=== PATIENT | male | born 2000 | race Caucasian/White ===

== ENCOUNTER 2018-08-14 08:19 | Emergency (ER) | payer SELFPAY ==
[~2018-08-14] VITALS: Ht 185.4 cm; Wt 127.0 kg
--- OUTSIDE RECORDS SUMMARY | 2018-08-14 08:24 | XMS REPORT | Continuity of Care Document ---
Author Organization Unknown Address Unknown Allergies There is no data. Medications There is no data. Problems Date Dx Coded Attending Type Code Diagnosis Diagnosed By 08/04/2013 V70.3 SPORTS PHYSICAL Procedures [place] [id number] VISUAL ACUITY SCREEN 08/06/2013 Results There is no data. Encounters ACCT No. Visit Date/Time Discharge Status Pt. Type Provider Facility Loc./Unit Complaint [id number] 08/04/2013 12:56:00 08/04/2013 23:59:59 CLS Outpatient
--- NOTE | 2018-08-14 08:42 | ED Back Pain ---
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 States no known injury to his back, no chronic back pain. States he has been using icy hot and advil at home with no relief. Nursing Sepsis Screen: No Definite Risk Source of Information: Patient History of Present Illness Date Seen by Provider: August 14, 2018 Time Seen by Provider: 08:42 Initial Comments 18 yo M presenting to the ED with complaints of mid thoracic back pain wrapping around his right chest/ribs for the last week or so. He states it is a sharp stabbing pain. It is worse with movement and occasional deep breaths. He denies any specific injury to cause it. He does work at [employer] and does lifting there but does not remember lifting anything heavier than normal. He has not had pain like this before. He has tried a single dose of Ibuprofen 400 mg yesterday and tried some Icy Hot with lidocaine but nothing has helped. He is to work again today but the pain was bad enough he came to the ED to get checked out. He has had no cough or fever/chills. Pain is not effected by eating or drinking. Allergies and Home Medications Allergies Coded Allergies: No Known Drug Allergies (Unverified , 08/14/18) Home Medications Cyclobenzaprine HCl 10 Mg Tablet, 10 MG PO BID PRN for SPASMS Prescribed by: MILAGRO CARMICHAEL on 08/14/18 1003 Ibuprofen 800 Mg Tablet, 800 MG PO Q8H Prescribed by: MILAGRO CARMICHAEL on 08/14/18 1003 Patient Home Medication List Home Medication List Reviewed: Yes Review of Systems Constitutional: see HPI; No chills, No dizziness, No fever, No malaise EENTM: no symptoms reported Respiratory: No cough, No hemoptysis, No short of breath, No stridor, No wheezing Cardiovascular: chest pain (with movement and deep breath) Gastrointestinal: no symptoms reported Genitourinary: no symptoms reported; No dysuria, No hematuria Musculoskeletal: see HPI Skin: no symptoms reported Psychiatric/Neurological: No Symptoms Reported Past Vwjcziq-Wajxfj-Iezfws Hx Past Med/Social Hx: Reviewed Nursing Past Med/Soc Hx Patient Social History Alcohol Use: Occasionally Uses Recreational Drug Use: No Smoking Status: Current Someday Smoker Type Used: Cigarettes 2nd Hand Smoke Exposure: No Recent Foreign Travel: No Contact w/Someone Who Travel: No Recent Infectious Disease Expo: No Recent Hopitalizations: No Physical Abuse: No Sexual Abuse: No Mistreated: No Fear: No Seasonal Allergies Seasonal Allergies: No Past Medical History Surgeries: No Respiratory: No Cardiac: No Neurological: No Genitourinary: No Gastrointestinal: No Musculoskeletal: No Endocrine: No HEENT: No Cancer: No Psychosocial: No Integumentary: No Blood Disorders: No Physical Exam Vital Signs Vital Signs - First Documented 08/14/18 08:25 Temp 97.3 Pulse 80 Resp 18 B/P (MAP) 129/84 (99) Pulse Ox 100 O2 Delivery Room Air Capillary Refill : Less Than 3 Seconds Height, Weight, BMI Height: 6'1.00" Weight: 280lbs. oz. 127.557350uo; BMI Method:Stated General Appearance: No Apparent Distress, WD/WN HEENT: PERRL/EOMI, Normal ENT Inspection, Pharynx Normal Neck: Full Range of Motion, Normal Inspection, Non Tender, Supple Cardiovascular: Regular Rate, Rhythm, No Murmur, Normal Peripheral Pulses Respiratory: Lungs Clear, Normal Breath Sounds, No Accessory Muscle Use, No Respiratory Distress, Other (mild tenderness to right posterior lower chest wall. no crepitus and no bruising or erythema to skin) Gastrointestinal: Non Tender, Soft Back: No CVA Tenderness, No Vertebral Tenderness Neurologic/Psychiatric: Alert, Oriented x3, No Motor/Sensory Deficits Progress/Results/Core Measures Results/Orders My Orders Orders - MILAGRO CARMICHAEL MD Ketorolac Injection (Toradol Injection) (08/14/18 08:59) Cyclobenzaprine Tablet (Flexeril Tablet) (08/14/18 08:59) Chest Pa/Lat (2 View) (08/14/18 09:01) Vital Signs/I&O 08/14/18 08/14/18 08:25 10:25 Temp 97.3 98.7 Pulse 80 57 Resp 18 18 B/P (MAP) 129/84 (99) 140/75 (96) Pulse Ox 100 100 O2 Delivery Room Air Room Air Blood Pressure Mean: 99 Progress Progress Note #1: Progress Note will give Toradol with flexeril to see if that helps with pain. check cxr to look at thoracic spine and ribs and lungs to look for pathology or reason for his pain Progress Note #2: Progress Note no significant improvement in the pain after meds, but has only been a short time. CXR does not show any acute abnormality to account for his pain. With him describing it as occasional spasm like pain and sharp stabbing pain with movement it sounds more musculoskeletal. Will continue with symptomatic treatment for musculoskeletal pain and have him check with clinic or chiropractor for continued care if not improving. Limit lifting at work for the next week to see if that helps as well Diagnostic Imaging Diagonstic Imaging: Xray Plain Films/CT/US/NM/MRI: chest Comments NAME: YONATAN ALFRED MED REC#: [id number] PT STATUS: REG ER : 2000 PHYSICIAN: MILAGRO CARMICHAEL MD ADMIT DATE: 08/14/18/ER FS Draft Date of Exam:08/14/18 CHEST PA/LAT (2 VIEW) INDICATION: Stabbing pain in the back, wraps around the front of the chest. Time of exam 8:51 AM No prior studies are available for comparison. The heart size is normal. The pulmonary vascularity is unremarkable. The lungs are clear. No infiltrate, effusion or pneumothorax is detected. Impression: No acute cardiopulmonary process is detected. Dictated on workstation # [id number] Dict: 08/14/1814 Trans: 08/14/18 0921 [facility] [id number] Interpreted by: AMARILIS COULTER MD Electronically signed by: Reviewed: Reviewed by Me (and radiologist reading) Departure Impression Primary Impression: Thoracic back pain Qualified Codes: M54.6 - Pain in thoracic spine Additional Impression: Thoracic back sprain Qualified Codes: S23.9XXA - Sprain of unspecified parts of thorax, initial encounter Disposition: 01 HOME, SELF-CARE Condition: Stable Departure-Patient Inst. Decision time for Depature: 09:59 Referrals: NO,LOCAL PHYSICIAN (PCP/Family) Primary Care Physician Patient Instructions: Muscle Strain (DC), Upper Back Pain (DC) Add. Discharge Instructions: Limit your lifting to no more than 25 pounds at a time for the next week to allow your back to rest and help keep from straining it more. Follow up with Chiropractor or Primary provider for continued pain and more problems. Especially if you are not improving in the next 3-5 days with the medicines Take the muscle relaxer and anti-inflammatory medicine to help with your symptoms. All discharge instructions reviewed with patient and/or family. Voiced understanding. Scripts Ibuprofen (Ibuprofen) 800 Mg Tablet 800 MG PO Q8H for Pain for 10 Days, #30 TAB 0 Refills Prov: MILAGRO CARMICHAEL MD 08/14/18 Cyclobenzaprine HCl (Cyclobenzaprine HCl) 10 Mg Tablet 10 MG PO BID PRN for SPASMS for 10 Days, #20 TAB 0 Refills Prov: MILAGRO CARMICHAEL MD 08/14/18 Work/School Note: Work Release Form Date Seen in the Emergency Department: August 14, 2018 Return to Work: August 14, 2018 Restrictions: Need Release from Doctor Other Restrictions Listed Below: Light duty. Limit lifting to no more than 25 Pounds x 1 week. MILAGRO CARMICHAEL MD August 14, 2018 08:42
[2018-08-14] MEDS ORDERED: CYCLOBENZAPRINE 10 MG (FLEXERIL) TAB PO STA (08:59)
[2018-08-14] MEDS ORDERED: KETOROLAC 60 MG/2 ML VIAL IM STA (08:59)
--- NOTE | 2018-08-14 09:21 | Diagnostic Imaging Report ---
INDICATION: Stabbing pain in the back, wraps around the front of the chest. Time of exam 8:51 AM No prior studies are available for comparison. The heart size is normal. The pulmonary vascularity is unremarkable. The lungs are clear. No infiltrate, effusion or pneumothorax is detected. Impression: No acute cardiopulmonary process is detected. Dictated by: Dictated on workstation # [id number]
[2018-08-14] MEDS ORDERED: CYCL10TA9 PO (10:03)
[2018-08-14] MEDS ORDERED: IBUP-1780 PO (10:03)
[2018-08-14 10:25] VITALS: BP 140/75
== END 2018-08-14 10:25 | disposition home or self-care (01) ==
LOC: ER FS 08:21
DX: S23.9XXA Sprain of unspecified parts of thorax, initial encounter (principal); F17.210 Nicotine dependence, cigarettes, uncomplicated; X50.0XXA Overexertion from strenuous movement or load, initial encounter; Y92.59 Other trade areas as the place of occurrence of the external cause; Y99.0 Civilian activity done for income or pay
CPT/HCPCS: 71046